=== PATIENT | female | born 1950 | race Caucasian/White ===

== ENCOUNTER 2017-03-18 09:24 | Inpatient (IN) | payer OTHER ==
[2017-03-18 09:34] VITALS: BMI 34.7
[2017-03-18] MEDS ORDERED: NITROSTAT SL PRN (10:07)
[2017-03-18] MEDS ORDERED: ASPIRIN PO ONE (10:07)
[2017-03-18] MEDS ORDERED: TORADOL 30 MG VIAL IVP STA (10:09)
--- NOTE | 2017-03-18 10:15 | DR.GENAD ---
HPI - PCP Primary Care Physician: Amy Ratliff - Complaint/Symptoms Chief Complaint Doctors Comments: Patient complains of her blood pressure being elevated for a while with xiphoid chest pain for the past three hours. States she went to her doctor x2 with her blood pressure being elevated and they gave her a pill in the office and sent her home but her blood pressure is constantly elevated. States she is taking her blood pressure medicines. She is having temporal and frontal headache that is discribed as the worst headache of her life with blurred vision. States she has been having xiphoid chest pain for the past 2-3 days. She is having lower abdominal pain and having rectal pain from hemorrhoids. States she has a problem with constipation but is not taking anything for constipation. She denies tobacco use. Chief Complaint:: High bp, lower abd pain, hemorrhoids - Nurses notes reviewed Nurses Notes Review: Yes - Source History Provided: Patient - Mode of Arrival Mode of Arrival: Ambulatory - Timing Onset of Chief Complaint: 03/18/17 Came on: Gradually - Duration Duration: Intermittent How lon Duration: Weeks - Location Location: diffuse headache; lower abdominal pain - Severity Severity: Moderate - Modifying Factors Worsens:: nothing Improves:: nothing PMH - PMH Past Medical History: Yes Past Medical History: Hypertension Past Surgical History: Yes Surgical History: Hysterectomy Past Surgical History Comment: partial hysterectomy - Family History History of Family Medical Conditions: Yes Family Medical History: Diabetes Mellitus, Cancer, Coronary Artery Disease, Hypertension - Social History Does patient currently use any type of tobacco product: No Have you used tobacco products in the last 12 months: No Type of Tobacco Use: None Does any household member use tobacco: No Alcohol Use: None Do you use any recreational Drugs:: No Lives With: Alone Lives Where: Home - infectious screening In the last 2 months have you had wt loss of >10#?: NO Have you had fever, night sweats or hemotysis?: No Have you traveled outside the country in the last 6 months?: No Isolation: Standard ROS - Review of Systems Constitutional: No Symptoms Reported. negative: See HPI, Chills, Diaphoresis, Fever, Malaise, Weakness, Irritable, Fatigue, Loss of Appetite, Other Eyes: No Symptoms Reported. negative: See HPI, Eye Pain, Blurred Vision, Tearing, Discharge, Photophobia, Diplopia, Other ENTM: No Symptoms Reported. negative: See HPI, Ear Pain, Ear Discharge, Pulling on Ears, Hearing Loss, Nose Pain, Nose Discharge, Epistaxis, Nose Congestion, Mouth Pain, Mouth Swelling, Loose Teeth, Drooling, Throat Pain, Throat Swelling, Ear Foreign Body Respiratoy: No Symptoms Reported. negative: See HPI, Productive Cough, Non- Productive Cough, Moist Cough, Dry Cough, Hacking Cough, Barking Cough, Brassy Cough, Orthopnea, Short of Breath, Stridor, Wheezing, Hemoptysis, Other Cardiovascular: Chest Pain. negative: No Symptoms Reported, See HPI, Edema, Palpitations, Syncope, Cyanosis, Skin Mottling, Other Gastrointestinal/Abdominal: No Symptoms Reported, Abdominal Pain (suprapubic pain), Constipation. negative: See HPI, Diarrhea, Nausea, Vomiting, Food Intolerance, Other Genitourinary: No Symptoms Reported. negative: See HPI, Discharge, Dysuria, Frequency, Hematuria, Pain, Bleeding, Other Neurological: No Symptoms Reported, Headache. negative: See HPI, Anxiety, Depressed, Emotional Problems, Numbness, Paresthesia, Pre-existing Deficit, Seizure, Tingling, Tremors, Weakness, Dizziness, Problems Walking, Speech Problem, Other Musculoskeletal: No Symptoms Reported Integumentary: No Symptoms Reported. negative: See HPI, Change in Color, Change in Hair/Nails, Dryness, Lesions, Lumps, Rash, Itching, Wound, Bruises, Juandice, Other Hematologic/Lymphatic: No Symptoms Reported. negative: See HPI, Anemia, Blood Clots, Easy Bleeding, Easy Bruising, Swollen Glands, Lymphadenopathy, Other Endocrine: No Symptoms Reported Psychiatric: No Symptoms Reported PE - Vital Signs Vitals: Temperature 98.0 F Pulse Rate [Left Brachial] 71 Pulse Rate 70 Respiratory Rate 16 Blood Pressure [Left Arm] 224/97 Blood Pressure 218/91 O2 Sat by Pulse Oximetry 100 - General Limitations: No Limitations General Appearance: Alert, In No Apparent Distress - Head Head Exam: Normal Inspection, Atraumatic, Normocephalic - Eyes Eye exam: Normal Appearance, PERRL, EOMI. negative: Scleral Icterus, Conjunctival Injection, Nystagmus, Miosis, Mydrasis, Periorbital Swelling, Periorbital Tenderness, Other - ENT ENT Exam: Normal Exam, Normal Oropharynx, Normal External Ear Exam, Mucous Membranes Moist, TM's Normal Bilaterally External Ear Exam: Normal External Inspection TM/Canal Exam: Bilateral Normal Nose Exam: Normal Nose Exam Mouth Exam: Normal Inspection. negative: Drooling, Trismus, Lip Swelling, Tongue Elevation, Tongue Swelling, Laceration, Other Throat Exam: Normal Inspection. negative: Tonsillar Erythema, Tonsillomegaly, Tonsillar Exudate, R Peritonsillar Mass, L Peritonsillar Mass, Muffled Voice, Other - Neck Neck Exam: Normal Inspection, Full ROM, Trachea Midline. negative: Tenderness, Meningismus, Lymphadenopathy, Thyromegaly, Other - Chest Chest Inspection: Normal Inspection, Symmetric Chest Wall Rise - Respiratory Respiratory Exam: Normal Lung Sounds Bilat. negative: Accessory Muscle Use, Chest Wall Tenderness, Prolonged Expiratory Phase, Respiratory Distress, Stridor , Other Respiratory Exam: Bilateral Clear to Auscultation - Cardiovascular Cardiovascular Exam: Regular Rate, Normal Rhythm, Normal Heart Sounds - Abdominal Exam Abdominal Exam: Normal Inspection, Normal Bowel Sounds, Soft, Tenderness ( suprapubic tenderness), Dimnished Bowel Sounds Abdominal Tenderness: LLQ, Suprapubic, Moderate - Extremities Extremities Exam: Normal Inspection, Full ROM, Normal Capillary Refill. negative: Tenderness, Edema, Joint Swelling, Calf Tenderness, Other - Back Back Exam: Normal Inspection, Full ROM. negative: Tenderness, (R) CVA Tenderness, (L) CVA Tenderness, Muscle Spasm, Paraspinal Tenderness, Vertebral Tenderness, Rashes, (R) Sciatic Notch Tenderness, (L) Sciatic Notch Tendern, (R ) Straight Leg Raise, (L) Straight Leg Raise, Other - Neurologic Neurological Exam: Alert, Oriented X3, CN II-XII Intact, Reflexes Normal. negative: Normal Gait (gait not tested) - Psychiatric Psychiatric Exam: Normal Affect, Normal Mood. negative: Depressed, Agitated, Anxious, Flat Affect, Manic, Homicidal Ideation, Suicidal Ideation, Other - Skin Skin Exam: Warm, Dry, Intact, Normal Color ROR - Labs Reviewed Laboratory Results Reviewed?: Yes (all labs and x-ray results reviewed and discussed with patient) Result Diagrams: 03/18/17 10:10 03/18/17 10:10 Laboratory: WBC 6.0 X10^3/uL (3.6-10.0) 03/18/17 10:10 RBC 5.12 X10^6/uL (3.5-5.4) 03/18/17 10:10 Hgb 14.6 g/dL (12.0-16.0) 03/18/17 10:10 Hct 43.3 % (36.0-47.0) 03/18/17 10:10 MCV 84.5 fL (80.0-100.0) 03/18/17 10:10 MCH 28.6 pg (27.0-34.0) 03/18/17 10:10 MCHC 33.8 g/dL (33.0-35.0) 03/18/17 10:10 RDW 15.6 % (11.6-16.5) 03/18/17 10:10 Plt Count 297 X10^3/uL (150.0-450.0) 03/18/17 10:10 MPV 7.7 fL (7.4-11.0) 03/18/17 10:10 Neut % 64.8 % (42.0-75.0) 03/18/17 10:10 Lymph % 26.4 % (21.0-51.0) 03/18/17 10:10 [place] % 6.3 % (0.0-13.0) 03/18/17 10:10 Eos % 1.4 % (0.9-2.9) 03/18/17 10:10 Baso % 1.1 % (0.2-1.0) H 03/18/17 10:10 Neut # 3.8 x10^3/uL (2.2-4.8) 03/18/17 10:10 Lymph # 1.6 X10^3/uL (1.3-2.9) 03/18/17 10:10 [place] # 0.4 x10^3/uL (0.3-0.8) 03/18/17 10:10 Eos # 0.1 x10^3/uL (0.0-0.2) 03/18/17 10:10 Baso # 0.1 X10^3/uL (0.0-0.1) 03/18/17 10:10 Absolute Nucleated RBC 0.0 /100WBC 03/18/17 10:10 INR Target Range - 03/18/17 10:10 INR 0.98 (0.8-1.3) 03/18/17 10:10 PTT 26.4 SECONDS (22.9-36.5) 03/18/17 10:10 PTT Comment - 03/18/17 10:10 D-Dimer 510 ng/mL (0-400) H* 03/18/17 10:10 Sodium 141 mmol/L (136-145) 03/18/17 10:10 Corrected Sodium 141 mmol/L (136-145) 03/18/17 10:10 Potassium 3.7 mmol/L (3.5-5.1) 03/18/17 10:10 Chloride 103 mmol/L (98-107) 03/18/17 10:10 Carbon Dioxide 29.4 mmol/L (21-32) 03/18/17 10:10 BUN 20 mg/dL (7-18) H 03/18/17 10:10 Creatinine 1.01 mg/dL (0.55-1.02) 03/18/17 10:10 Est GFR (MDRD) Af Amer > 60 (>60) 03/18/17 10:10 Est GFR (MDRD) Non-Af 58 (>60) L 03/18/17 10:10 Glucose 118 mg/dL (65-99) H 03/18/17 10:10 Calcium 8.9 mg/dL (8.5-10.1) 03/18/17 10:10 Corrected Calcium TNP 03/18/17 10:10 Magnesium 1.8 mg/dL (1.7-2.9) 03/18/17 10:10 Total Bilirubin 0.70 mg/dL (0.2-1.0) 03/18/17 10:10 AST 15 Units/L (15-37) 03/18/17 10:10 ALT 25 Units/L (12-78) 03/18/17 10:10 Alkaline Phosphatase 64 Units/L (46-116) 03/18/17 10:10 Creatine Kinase 47 Units/L (26-192) 03/18/17 10:10 CK-MB (CK-2) < 1.0 ng/mL (0-4.0) 03/18/17 10:10 CK/CKMB % Calc 2.1 % (<4) 03/18/17 10:10 Troponin I < 0.02 ng/mL (0-1.5) 03/18/17 10:10 Total Protein 7.7 g/dL (6.4-8.2) 03/18/17 10:10 Albumin 3.9 g/dL (3.4-5.0) 03/18/17 10:10 Globulin 3.8 g/dL (2.5-4.5) 03/18/17 10:10 Albumin/Globulin Ratio 1.0 Ratio (1.1-2.1) L 03/18/17 10:10 Specimen Type Clean catch urine 03/18/17 11:15 Urine Color Yellow (YELLOW) 03/18/17 11:15 Urine Appearance Hazy (CLEAR) 03/18/17 11:15 Urine pH 6.0 (5.0 - 8.0) 03/18/17 11:15 Ur Specific [place] 1.015 (1.000-1.030) 03/18/17 11:15 Urine Protein Negative (NEGATIVE) 03/18/17 11:15 Urine Glucose (UA) Negative (NEGATIVE) 03/18/17 11:15 Urine Ketones Negative (NEGATIVE) 03/18/17 11:15 Urine Occult Blood 1+ (NEGATIVE) 03/18/17 11:15 Urine Nitrite Negative (NEGATIVE) 03/18/17 11:15 Urine Bilirubin Negative (NEGATIVE) 03/18/17 11:15 Urine Urobilinogen Normal (NORMAL) 03/18/17 11:15 Ur Leukocyte Esterase 3+ (NEGATIVE) 03/18/17 11:15 Urine RBC 3-5 /HPF (NEGATIVE) 03/18/17 11:15 Urine WBC 6-10 /HPF (NEGATIVE) 03/18/17 11:15 Ur Squamous Epith Cells Moderate /HPF (NEGATIVE) 03/18/17 11:15 Urine Bacteria Trace /HPF (NEGATIVE) 03/18/17 11:15 Ur Culture Indicated? No/not indicated 03/18/17 11:15 Urine Opiates Screen Negative (NEG=<300) 03/18/17 11:15 Urine Methadone Screen Negative (NEG=<300) 03/18/17 11:15 Ur Barbiturates Screen Negative (NEG=<200) 03/18/17 11:15 Ur Phencyclidine Scrn Negative (NEG=<25) 03/18/17 11:15 Ur Amphetamines Screen Negative (NEG=<1000) 03/18/17 11:15 U Benzodiazepines Scrn Negative (NEG=<200) 03/18/17 11:15 Urine Cocaine Screen Negative (NEG=<300) 03/18/17 11:15 U Marijuana (THC) Screen Negative (NEG=<50) 03/18/17 11:15 - XRAY XRAY Interpreted by: Radiologist (CT abdomen and pelvis: 14.9 cm right pelvic mass appear to arise from the right ovary.), Both (CTA: No CT evidence of pulmonary embolus. 2 mm nodular opacity right lower lob) - Diagnosis Discharge Problem: Pelvic mass, Hypertension, Pulmonary nodule, right, Hyperglycemia, Hypertensive urgency Chest pain Qualifiers: Chest pain type: unspecified Qualified Code(s): R07.9 - Chest pain, unspecified Abdominal pain Qualifiers: Abdominal location: lower abdomen, unspecified Qualified Code(s): R10.30 - Lower abdominal pain, unspecified - Discharge Plan Disposition: [facility] Condition: Stable Prescriptions: Amlodipine Besylate [NORVASC 5 MG *] 5 mg PO DAILY #30 tab - Follow ups/Referrals Follow ups/Referrals: AMY RATLIFF [Primary Care Provider] - 3 days LISANDRO SCRUGGS [STAFF PHYSICIAN] - 3 days - Instructions
[2017-03-18 10:24] LABS: BASOPHILS # (AUTO) 0.1 X10^3/uL (0.0-0.1); BASOPHILS % (AUTO) 1.1 % (0.2-1.0); EOSINOPHILS # (AUTO) 0.1 x10^3/uL (0.0-0.2); EOSINOPHILS % (AUTO) 1.4 % (0.9-2.9); HEMATOCRIT 43.3 % (36.0-47.0); HEMOGLOBIN 14.6 g/dL (12.0-16.0); LYMPHOCYTES # (AUTO) 1.6 X10^3/uL (1.3-2.9); LYMPHOCYTES % (AUTO) 26.4 % (21.0-51.0); MEAN CORPUSCULAR HEMOGLOBIN 28.6 pg (27.0-34.0); MEAN CORPUSCULAR HGB CONC 33.8 g/dL (33.0-35.0); MEAN CORPUSCULAR VOLUME 84.5 fL (80.0-100.0); MEAN PLATELET VOLUME 7.7 fL (7.4-11.0); MONOCYTES # (AUTO) 0.4 x10^3/uL (0.3-0.8); MONOCYTES % (AUTO) 6.3 % (0.0-13.0); NEUTROPHILS # (AUTO) 3.8 x10^3/uL (2.2-4.8); NEUTROPHILS % (AUTO) 64.8 % (42.0-75.0); PLATELET COUNT 297 X10^3/uL (150.0-450.0); RED BLOOD COUNT 5.12 X10^6/uL (3.5-5.4); RED CELL DISTRIBUTION WIDTH 15.6 % (11.6-16.5)
[2017-03-18 10:41] LABS: BLOOD UREA NITROGEN 20 mg/dL (7-18); CALCIUM 8.9 mg/dL (8.5-10.1); CARBON DIOXIDE 29.4 mmol/L (21-32); CHLORIDE 103 mmol/L (98-107); COR NA(FOR HYPERGLY) 141 mmol/L (136-145); CREATININE 1.01 mg/dL (0.55-1.02); GLUCOSE 118 mg/dL (65-99); SODIUM 141 mmol/L (136-145); TROPONIN I < 0.02 ng/mL (0-1.5); eGFR BLACK RACES > 60 (>60); eGFR NON BLACK RACES 58 (>60)
[2017-03-18 10:46] LABS: ALANINE AMINOTRANSFERASE 25 Units/L (12-78); ALKALINE PHOSPHATASE 64 Units/L (46-116); ASPARTATE AMINO TRANSFERASE 15 Units/L (15-37); CREATINE KINASE 47 Units/L (26-192); CREATINE KINASE MB < 1.0 ng/mL (0-4.0); TOTAL PROTEIN 7.7 g/dL (6.4-8.2)
[2017-03-18 10:54] LABS: CKMB % 2.1 % (<4)
[2017-03-18 11:04] LABS: ALBUMIN 3.9 g/dL (3.4-5.0); MAGNESIUM 1.8 mg/dL (1.7-2.9)
[2017-03-18 11:17] LABS: D DIMER 510 ng/mL (0-400)
[2017-03-18] MEDS ORDERED: CATAPRES TAB 0.2 MG PO ONE (11:24)
[2017-03-18] MEDS ORDERED: CATAPRES TAB 0.2 MG ONE (11:25)
[2017-03-18 11:30] LABS: BILIRUBIN,URINE NEGATIVE (NEGATIVE); BLOOD/HEMOGLOBIN,URINE 1+ (NEGATIVE); GLUCOSE, URINE NEGATIVE (NEGATIVE); KETONES,URINE NEGATIVE (NEGATIVE); LEUKOCYTE ESTERASE ,URINE 3+ (NEGATIVE); NITRITES,URINE NEGATIVE (NEGATIVE); PROTEIN,URINE NEGATIVE (NEGATIVE); UROBILINOGEN,URINE NORMAL (NORMAL)
--- NOTE | 2017-03-18 11:34 | CT ---
HISTORY: Worst headache in life with elevated blood pressure. Study: CT brain without contrast Comparison: None. Technique: Multiple axial images of the brain were obtained from the skull base to the vertex without administr ation of IV contrast. Dose reduction techniques including Automated Exposure Control (AEC) and adju stment of mA and kV were utilized. Findings: Age related cortical atrophy and chronic small vessel ischemic changes. No acute intraparenchymal he morrhage or mass can be identified. No extra-axial fluid collections are seen. No alteration in th e attenuation of the brain parenchyma can be identified to suggest acute or subacute ischemic change . The ventricular system is symmetric and nondilated. The extracranial structures are grossly unre markable. IMPRESSION: 1. No acute intracranial process can be identified. Reported By:
[2017-03-18 11:35] LABS: APPEARANCE,URINE HAZY (CLEAR); BACTERIA,URINE TRACE /HPF (NEGATIVE); COLOR,URINE YELLOW (YELLOW); SQUAMOUS EPITHELIAL CELL,UR MODERATE /HPF (NEGATIVE)
[2017-03-18] MEDS ORDERED: NS 100 ML IV 100 ML IV ONE (11:45)
--- NOTE | 2017-03-18 12:37 | CT ---
HISTORY: Left upper quadrant and suprapubic pain. Study: CT abdomen and pelvis without contrast Comparison: None. Technique: Multiple axial images of the abdomen and pelvis were obtained from the lung bases to the pubic symph ysis without the administration of IV contrast. Dose reduction techniques including Automated Expos ure Control (AEC) and adjustment of mA and kV were utilized. Findings: Limited study secondary to the lack of IV and oral contrast. The visualized portions of the lung bases are unremarkable. The liver, spleen, pancreas, kidneys, a nd adrenal glands are unremarkable in their CT appearance. The gallbladder is unremarkable in its CT appearance. No significant mesenteric lymphadenopathy or stranding can be observed. No free fluid or free air is seen within the abdomen. Inadequate evaluation of the large and small bowel seconda ry to collapse and lack of oral contrast. However , the large and small bowel appear normal. The [place] is surgically absent. The left ovary is not well seen. Likely arising from the right ovary there is a heterogeneous hypodense 10.2 by 9.6 x 14.9 cm solid and cystic mass. There is a large calcific ation adjacent to the anterior lateral mass. No obvious peritoneal implants. The urinary bladder is grossly unremarkable. The osseous structures appear normal for age. No aggressive osseous lesions. IMPRESSION: 14.9 cm right pelvic mass that appears to arise from the right ovary. This is highly devang picious for ovarian cancer. No obvious ascites or peritoneal implants. Differential diagnosis also i ncludes pelvic sarcoma. Recommend OBGYN consultation and MRI of the abdomen and pelvis on outpatient basis for further characterization. Reported By:
--- NOTE | 2017-03-18 12:54 | CT ---
HISTORY: Chest pain, elevated D-dimer Study: CT chest with a contrast Comparison: None Technique: Multiple axial images of the chest were obtained from the thoracic inlet to the upper abd omen with the administration of IV contrast. Coronal and sagittal reformatted 3 dimensional MIP imag es were also submitted utilizing CTA protocol. Findings: Scattered subcentimeter lymph nodes are seen within the mediastinum. Atherosclerotic changes are not ed within the visualized Coronary arteries and aorta. There is no pericardial effusion observed. T iming of the contrast bolus is somewhat suboptimal however no definite focal well-circumscribed fill ing defects are appreciated within the main pulmonary arteries. Biapical scarring is noted. Atelecta sis is demonstrated within both lower lobes. There is a questionable tiny nodular density within the right lower lobe measuring approximate 2 cm on image 56 of series 5. This may reflect scarring or p erhaps a vessel branch point but remains indeterminate. Followup exam in 3-6 months may be performed for further evaluation. Otherwise no CT evidence of focal consolidation, pneumothorax, or pleural e ffusion is identified. IMPRESSION: 1. No CT evidence of pulmonary embolus is appreciated. 2. 2 mm nodular opacity within the right lower lobe as noted above. Reported By:
--- NOTE | 2017-03-18 13:49 | RAD ---
HISTORY: Chest pain Study: Single view chest. Comparison: None. Findings: The trachea is midline. The cardiac silhouette is enlarged with a tortuous thoracic aorta. The jose david gs are clear without focal infiltrate or effusion. The bony thorax is unremarkable. IMPRESSION: Cardiomegaly without acute cardiopulmonary process seen. Reported By:
[2017-03-18] MEDS ORDERED: NORMODYNE INJ 100 MG VIAL IVP ONE (14:09)
[2017-03-18] MEDS ORDERED: NORMODYNE INJ 20 MG VIAL ONE (14:12)
[2017-03-18] MEDS ORDERED: NORMODYNE INJ 20 MG VIAL IVP ONE (15:54)
[2017-03-18 16:52] LABS: CREATINE KINASE 49 Units/L (26-192); CREATINE KINASE MB < 1.0 ng/mL (0-4.0); TROPONIN I < 0.02 ng/mL (0-1.5)
[2017-03-18] MEDS: CHLORTHALIDONE PO SCH (17:18)
[2017-03-18] MEDS: AZILSARTAN MED PO SCH (17:18)
[2017-03-18] MEDS: TOPROL XL PO SCH (17:21)
[2017-03-18] MEDS: NORVASC TAB 10 MG PO SCH (17:21)
[2017-03-18] MEDS: PROTONIX INJ 40 MG VIAL IVP SCH (17:21)
[2017-03-18 22:44] LABS: CKMB % 1.4 % (<4); CREATINE KINASE 70 Units/L (26-192); CREATINE KINASE MB < 1.0 ng/mL (0-4.0); TROPONIN I < 0.02 ng/mL (0-1.5)
[2017-03-18] MEDS: RESTORIL CAP 15 MG PO PRN (22:55)
[2017-03-19 06:05] LABS: ALANINE AMINOTRANSFERASE 23 Units/L (12-78); ALBUMIN 3.6 g/dL (3.4-5.0); ALKALINE PHOSPHATASE 60 Units/L (46-116); ASPARTATE AMINO TRANSFERASE 18 Units/L (15-37); BLOOD UREA NITROGEN 16 mg/dL (7-18); CALCIUM 8.9 mg/dL (8.5-10.1); CHLORIDE 104 mmol/L (98-107); CHOL/HDL RATIO 3.3 (0.0-5.0); CHOLESTEROL 200 mg/dL (0-200); CKMB % 1.9 % (<4); CREATINE KINASE 52 Units/L (26-192); CREATINE KINASE MB < 1.0 ng/mL (0-4.0); CREATININE 0.94 mg/dL (0.55-1.02); GLUCOSE 100 mg/dL (65-99); HDL CHOLESTEROL 61 mg/dL (40-60); SODIUM 141 mmol/L (136-145); TOTAL PROTEIN 7.1 g/dL (6.4-8.2); TRIGLYCERIDES 81 mg/dL (0-150); TROPONIN I < 0.02 ng/mL (0-1.5); eGFR BLACK RACES > 60 (>60); eGFR NON BLACK RACES > 60 (>60)
[2017-03-19 06:18] LABS: BASOPHILS # (AUTO) 0.1 X10^3/uL (0.0-0.1); BASOPHILS % (AUTO) 0.9 % (0.2-1.0); EOSINOPHILS # (AUTO) 0.2 x10^3/uL (0.0-0.2); EOSINOPHILS % (AUTO) 2.1 % (0.9-2.9); HEMATOCRIT 41.5 % (36.0-47.0); HEMOGLOBIN 14.2 g/dL (12.0-16.0); LYMPHOCYTES # (AUTO) 2.6 X10^3/uL (1.3-2.9); LYMPHOCYTES % (AUTO) 35.5 % (21.0-51.0); MEAN CORPUSCULAR HGB CONC 34.1 g/dL (33.0-35.0); MEAN CORPUSCULAR VOLUME 84.8 fL (80.0-100.0); MEAN PLATELET VOLUME 8.4 fL (7.4-11.0); MONOCYTES # (AUTO) 0.5 x10^3/uL (0.3-0.8); NEUTROPHILS # (AUTO) 3.9 x10^3/uL (2.2-4.8); NEUTROPHILS % (AUTO) 54.5 % (42.0-75.0); PLATELET COUNT 243 X10^3/uL (150.0-450.0); RED BLOOD COUNT 4.89 X10^6/uL (3.5-5.4); RED CELL DISTRIBUTION WIDTH 15.6 % (11.6-16.5); WHITE BLOOD COUNT 7.2 X10^3/uL (3.6-10.0)
[2017-03-19 06:56] LABS: PLATELET MORPHOLOGY COMMENT NORMAL (NORMAL)
[2017-03-19] MEDS: AZILSARTAN MED PO SCH (09:22)
[2017-03-19] MEDS: LOVENOX INJ 40 MG SYR SC SCH (09:22)
[2017-03-19] MEDS: TOPROL XL PO SCH (09:22)
[2017-03-19] MEDS: SYNTHROID 25 mcg TAB PO SCH (09:22)
[2017-03-19] MEDS: NORVASC TAB 10 MG PO SCH (09:22)
[2017-03-19] MEDS: CHLORTHALIDONE PO SCH (09:22)
[2017-03-19] MEDS: PROTONIX INJ 40 MG VIAL IVP SCH (09:22)
[2017-03-19] MEDS ORDERED: TOPROL XL PO SCH (09:59)
--- NOTE | 2017-03-19 10:07 | DR.H&P ---
H&P - History & Physical for Day of: H&P Date: 03/18/17 - Chief Complaint Chief Complaint: hypertension - Allergies Allergies/Adverse Reactions: Allergies Allergy/AdvReac Type Severity Reaction Status Date / Time No Known Drug Allergies Allergy Verified 03/18/17 10:47 - History of Present Illness History of Present Illness: Patient is a 66 yo female who presented to the emergency with hypertension, patient was also found to have a pelvic mass and as well as a chest mass. Patient admitted for futher treatment of hypertension and chest pain - Past Medical History Past Medical History: Hypertension - Past Surgical History Surgical History: Hysterectomy - Family History Family Medical History: Diabetes Mellitus, Cancer, OR, Hypertension - Social History Does patient currently use any type of tobacco product: No Have you used tobacco products in the last 12 months: No Type of Tobacco Use: None Does any household member use tobacco: No Alcohol Use: None Drug Use: None - Medications Home Medications: Azilsartan Med/Chlorthalidone [Edarbyclor 40/25 mg] 1 tab PO DAILY 03/18/17 [ History Confirmed 03/18/17] Levothyroxine Sodium [SYNTHROID 25 mcg *] 1 tab PO DAILY 03/18/17 [History Confirmed 03/18/17] Metoprolol Succinate Ext Rel [TOPROL XL 50 MG *] 1 tab PO DAILY 03/18/17 [ History Confirmed 03/18/17] Metronidazole [FLAGYL 500 MG *] 1 tab PO BID 03/18/17 [History Confirmed ] - Review of Systems Constitutional: Weakness Eyes: No Symptoms Reported ENT: No Symptoms Reported Respiratory: No Symptoms Reported Cardiovascular: Chest Pain Gastrointestinal: No Symptoms Reported Genitourinary: No Symptoms Reported Musculoskeletal: No Symptoms Reported Skin: No Symptoms Reported Neurological: No Symptoms Reported - Physical Exam Vital Signs: Temperature 98.5 F Pulse Rate [Left Brachial] 56 Respiratory Rate 12 Blood Pressure [Left Arm] 149/76 O2 Sat by Pulse Oximetry 94 Oriented: Normal Eyes: Normal Ear: Normal Nose: Normal Throat: Normal Respiratory: Clear Throughout Cardiovascular: Normal : Normal Auscultation: Bowel Sounds: Normal Palpation: Normal Tenderness: Normal Skin: Normal Musculoskeletal: Normal Psychiatric: Normal Mood Description: Calm, Appropriate Affect: Normal Speech Pattern: Clear, Appropriate - Assessment/Plan (1) Chest pain Qualifiers: Chest pain type: unspecified Ischemic chest pain type: I Qualified Code(s ): R07.9 - Chest pain, unspecified Status: Acute Plan: serial cardiac enzymes and ekg and continuous cardiac monitoring (2) Hypertensive urgency Status: Acute Plan: moniotor blood pressure and treat hypertension as needed
[2017-03-19] MEDS ORDERED: TOPROL XL PO ONE (10:33)
[2017-03-19] MEDS ORDERED: MOTRIN TAB 600 MG PO PRN (13:04)
[2017-03-19] MEDS ORDERED: ADVIL TAB 200 MG PO ONE (13:47)
[2017-03-19] MEDS: RESTORIL CAP 15 MG PO PRN (22:20)
[2017-03-20] MEDS: NORVASC TAB 10 MG PO SCH (09:26)
[2017-03-20] MEDS: SYNTHROID 25 mcg TAB PO SCH (09:26)
[2017-03-20] MEDS: LOVENOX INJ 40 MG SYR SC SCH (09:26)
[2017-03-20] MEDS: PROTONIX INJ 40 MG VIAL IVP SCH (09:26)
[2017-03-20] MEDS: CHLORTHALIDONE PO SCH (09:29)
[2017-03-20] MEDS: AZILSARTAN MED PO SCH (09:29)
[2017-03-20 18:39] VITALS: BP 137/69
== END 2017-03-20 20:00 | disposition home or self-care (01) | DRG 305 ==
LOC: ER 09:45 → ICU 15:49
PROVIDERS: ADMIT Obstetrics & Gynecology Obstetrics; ATTEND Obstetrics & Gynecology Obstetrics
DX: I16.0 Hypertensive urgency (principal); R07.2 Precordial pain; R19.09 Other intra-abdominal and pelvic swelling, mass and lump; R51 Headache; R10.30 Lower abdominal pain, unspecified; Z79.899 Other long term (current) drug therapy; R79.1 Abnormal coagulation profile
CPT/HCPCS: 36415; 70450; 71010; 71275; 74176; 80053; 80061; 80307; 81001; 82550; 82553; 83735; 84484; 85025; 85378; 85610; 85730; 93005; 93010; 96365; 96367; 96374; 99284; 99285; A4216; A4222; C9113; G0434; J1650; J1885; J3490